=== PATIENT | female | born 1995 | race Caucasian/White ===

== ENCOUNTER 2018-11-23 10:58 | Emergency (ER) | payer OTHER ==
[~2018-11-23] VITALS: Ht 172.7 cm; Wt 83.0 kg
== END 2018-11-23 11:24 | disposition home or self-care (01) ==
LOC: ED 10:58
DX: S89.91XA Unspecified injury of right lower leg, initial encounter (principal); W19.XXXA Unspecified fall, initial encounter

== ENCOUNTER 2022-08-27 01:23 | Inpatient (IN) | payer OTHER ==
[~2022-08-27] VITALS: Ht 170.2 cm; Wt 106.6 kg
--- NOTE | 2022-08-28 07:55 | PR ---
[facility] [address] [facility] [place], [place] [address] Signed PP Progress Notes Datetime Report Generated by CPN: 08/28/2022 07:54 SUBJECTIVE: [id number] Pain: Within Normal Limits Nausea/Vomiting: Denies Flatus: Yes Bowel Movement: No Vital Signs: [id number] Vital Signs: Reviewed; Within Normal Limits Cardiovascular: Normal Respiratory: Normal Abdomen/Uterus: Normal Lochia: Normal Vulva/Perineum: Not Done Breasts: Not Done CVA Tenderness: Normal Extremities: Normal Incision: Not Applicable Progress: Normal Exam Comments: Fundu firm U-2 nontender IMPRESSION/PLAN/PROCEDURES: [id number] Impression: Normal Progression Plan: Discharge Procedures: None Progress Notes: Pt seen and examined. Doing well. Ambulating voiding, and tolerating full diet. Pain and lochia minimal. well. No fevers/chills or other concerns. Signing Physician: Theresa Sam DO Copies: ~ *Electronically Signed* 08/28/22 0754 THERESA SAM (OMAR) DO PATIENT NAME: DELILAH ZHANG PROGRESS NOTE DATE OF : 93 PHYSICIAN: THERESA SAM) DO RPT #: [id number] REPORT IS CONFIDENTIAL AND NOT TO BE RELEASED WITHOUT AUTHORIZATION
== END 2022-08-28 11:00 | disposition home or self-care (01) | DRG 807 ==
LOC: FBCO 01:23 → FBC 01:50
PROVIDERS: ADMIT Obstetrics & Gynecology; ATTEND Obstetrics & Gynecology
PROC: 10E0XZZ Delivery of Products of Conception, External Approach (ICD-10-PCS; principal; 2022-08-27)
PROC: 0KQM0ZZ Repair Perineum Muscle, Open Approach (ICD-10-PCS; 2022-08-27)
PROC: 00HU33Z Insertion of Infusion Device into Spinal Canal, Percutaneous Approach (ICD-10-PCS; 2022-08-27)
PROC: 3E0R3BZ Introduction of Anesthetic Agent into Spinal Canal, Percutaneous Approach (ICD-10-PCS; 2022-08-27)
DX: O70.1 Second degree perineal laceration during delivery (principal); Z37.0 Single live birth; Z3A.39 39 weeks gestation of pregnancy; Z67.40 Type O blood, Rh positive; Z20.822 Contact with and (suspected) exposure to COVID-19
CPT/HCPCS: 36415; 81001; 83036; 85027; 86762; 86780; 86803; 86850; 86900; 86901; 87088; 87340; 87502; 87536; A9270; J2590; J2795; J7121; U0003